=== PATIENT | female | born 1995 ===

== ENCOUNTER 2024-03-19 15:07 | Emergency (ER) | payer SELFPAY ==
[2024-03-19 16:29] LABS: HCG,QUALITATIVE URINE Positive
[2024-03-19 16:30] LABS: EPI CELLS 7 /uL (0-25.1); HYALINE CASTS 0 /uL (0-3.1); URINE APPEARANCE CLEAR; URINE BACTERIA 87 /uL (0-1359); URINE BILIRUBIN NEGATIVE (NEGATIVE); URINE COLOR YELLOW; URINE GLUCOSE (UA) NEGATIVE (NEGATIVE); URINE KETONE TRACE (NEGATIVE); URINE LEUK ESTERASE NEGATIVE (NEGATIVE); URINE NITRITE NEGATIVE (NEGATIVE); URINE PROTEIN NEGATIVE (NEGATIVE); URINE RBC 137 /uL (0-23.9); URINE WBC 7 /uL (0-25.8)
[2024-03-19 16:31] LABS: INR 1.05 (0.83-1.09); PROTHROMBIN TIME (PATIENT) 11.9 SEC (9.7-13.0)
[2024-03-19 16:34] LABS: ACTIVATED PTT 35.2 SECONDS (25.2-36.5)
[2024-03-19 16:38] LABS: BASO % 0.2 % (0-2.0); EOS % 1.3 % (0-4.5); HEMATOCRIT 34.7 % (32.4-45.2); HEMOGLOBIN 11.9 GM/dL (10.7-15.3); LYMPH % 22.8 % (8-40); MCH 28.9 pg (25.7-33.7); MCHC 34.4 g/dl (32.0-36.0); MEAN PLT VOLUME 9.1 fl (7.5-11.1); MONO % 5.1 % (3.8-10.2); NEUT % 70.6 % (42.8-82.8); PLATELET COUNT 242 10^3/uL (134-434); RBC 4.13 M/mm3 (3.60-5.2); WHITE BLOOD COUNT 11.5 K/mm3 (4.0-10.0)
[2024-03-19 16:46] LABS: POTASSIUM 3.8 mmol/L (3.5-5.1)
[2024-03-19 16:48] LABS: ALBUMIN 3.7 g/dl (3.4-5.0); CALCIUM 9.6 mg/dL (8.5-10.1)
[2024-03-19 16:51] LABS: CREATININE 0.6 mg/dL (0.55-1.3)
[2024-03-19 16:53] LABS: BILIRUBIN,TOTAL 0.4 mg/dL (0.2-1)
[2024-03-19] MEDS: SODIUM CHLORIDE 1,000 ML IV STA (18:00)
[2024-03-19 18:44] VITALS: BP 107/64; PULSE 86; RESP 18; TEMP 97.7
== END 2024-03-19 19:25 | disposition home or self-care (01) ==
LOC: JER 15:07
PROC: 3E0337Z Introduction of Electrolytic and Water Balance Substance into Peripheral Vein, Percutaneous Approach (ICD-10-PCS; principal; 2024-03-19)
DX: O03.9 Complete or unspecified spontaneous abortion without complication (principal)
CPT/HCPCS: 36415; 76817-TC; 80053; 81003; 84702; 84703; 85025; 85610; 85730; 86850; 86900; 86901; 87086; 99284-25